=== PATIENT | male | born 1990 | race American Indian/Alaskan Native ===

== ENCOUNTER 2019-09-05 23:25 | Inpatient (IN) | payer OTHER ==
[2019-09-05] MEDS ORDERED: SODIUM CHLORIDE 0.9% 1000 ML 1,000 ML IV ONE (23:30)
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
[2019-09-06 00:09] LABS: Basophils # (Auto) 0.1 K/mm3 (0.0-0.1); Basophils % (Auto) 0.6 % (0.0-1.8); Eosinophils # (Auto) 0.1 K/mm3 (0.0-0.4); Eosinophils % (Auto) 0.6 % (0.0-4.3); Hematocrit 43.5 % (35.5-45.6); Lymphocytes # (Auto) 2.8 K/mm3 (1.2-5.4); Lymphocytes % (Auto) 23.8 % (13.4-35.0); Mean Corpuscular HGB Conc 35 % (32-34); Mean Corpuscular Volume 85 fl (84-94); Monocytes # (Auto) 0.5 K/mm3 (0.0-0.8); Monocytes % (Auto) 4.7 % (0.0-7.3); Platelet Count 264 K/mm3 (140-440); Red Blood Count 5.14 M/mm3 (3.65-5.03); Red Cell Distribution Width 13.2 % (13.2-15.2)
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
[2019-09-06 00:28] LABS: BUN/Creatinine Ratio 14; Blood Urea Nitrogen 17 mg/dL (9-20); Calcium 9.2 mg/dL (8.4-10.2); Hemolysis Index 36
[2019-09-06 00:45] LABS: INR 1.04 (0.87-1.13)
[2019-09-06 00:47] LABS: Partial Thromboplastin Time 22.3 Sec. (24.2-36.6)
[2019-09-06] MEDS ORDERED: fentaNYL 100 MCG/2 ML INJ IV ONE (00:47)
[2019-09-06] MEDS ORDERED: ONDANSETRON 4 MG/2 ML INJ IV ONE (00:47)
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
[2019-09-06] MEDS ORDERED: ONDANSETRON 4 MG/2 ML INJ IV PRN (03:16)
[2019-09-06] MEDS ORDERED: ALBUTEROL 2.5 MG/3 ML NEBU IH PRN (03:16)
[2019-09-06] MEDS: MORPHINE 4 MG/1 ML INJ IV PRN ×4 (03:45→23:09)
[2019-09-06] MEDS: SODIUM CHLORIDE 0.45% 1000 ML 1,000 ML IV SCH ×2 (05:54→14:55)
[2019-09-06] MEDS ORDERED: HYDROmorphone 1 MG/1 ML INJ IV ONE (05:58)
[2019-09-06] MEDS: ACETAMINOPHEN 325 MG TAB PO PRN ×2 (06:14→21:39)
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
[2019-09-06] MEDS: ceFAZolin/NS 1 GM/50 ML 1 GM/50 ML BAG IV SCH (21:40)
[2019-09-07] MEDS: MORPHINE 4 MG/1 ML INJ IV PRN ×6 (03:48→22:56)
[2019-09-07] MEDS: SODIUM CHLORIDE 0.45% 1000 ML 1,000 ML IV SCH ×2 (03:50→05:53)
[2019-09-07] MEDS: ceFAZolin/NS 1 GM/50 ML 1 GM/50 ML BAG IV SCH (05:57)
[2019-09-07 08:46] LABS: Basophils % (Auto) 0.4 % (0.0-1.8); Eosinophils # (Auto) 0.1 K/mm3 (0.0-0.4); Eosinophils % (Auto) 0.6 % (0.0-4.3); Hematocrit 38.1 % (35.5-45.6); Hemoglobin 13.2 gm/dl (11.8-15.2); Lymphocytes # (Auto) 3.3 K/mm3 (1.2-5.4); Lymphocytes % (Auto) 33.4 % (13.4-35.0); Mean Corpuscular HGB Conc 35 % (32-34); Mean Corpuscular Volume 85 fl (84-94); Monocytes % (Auto) 10.4 % (0.0-7.3); Platelet Count 176 K/mm3 (140-440); Red Cell Distribution Width 13.3 % (13.2-15.2)
[2019-09-07 09:02] LABS: BUN/Creatinine Ratio 8; Blood Urea Nitrogen 10 mg/dL (9-20); Calcium 8.5 mg/dL (8.4-10.2); Hemolysis Index 6
[2019-09-07 09:51] LABS: INR 1.33 (0.87-1.13)
[2019-09-07 09:52] LABS: Partial Thromboplastin Time 36.1 Sec. (24.2-36.6)
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
[2019-09-08] MEDS: MORPHINE 4 MG/1 ML INJ IV PRN ×5 (02:37→21:27)
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
[2019-09-08] MEDS: SODIUM CHLORIDE 0.45% 1000 ML 1,000 ML IV SCH (17:27)
[2019-09-09] MEDS: MORPHINE 4 MG/1 ML INJ IV PRN ×5 (01:04→21:16)
[2019-09-09] MEDS: SODIUM CHLORIDE 0.45% 1000 ML 1,000 ML IV SCH (11:35)
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
[2019-09-10] MEDS: SODIUM CHLORIDE 0.45% 1000 ML 1,000 ML IV SCH ×2 (00:50→09:11)
[2019-09-10] MEDS: MORPHINE 4 MG/1 ML INJ IV PRN ×4 (00:54→15:50)
[2019-09-10] MEDS ORDERED: SULFAMETHOXAZOLE/TRIMETHOPRIM 800/160MG DS TAB PO SCH (10:00)
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
[2019-09-10 19:33] VITALS: BP 119/79
== END 2019-09-10 20:01 | disposition home or self-care (01) | DRG 872 ==
LOC: ED 23:25 → 3A 09-06 04:42
PROVIDERS: ADMIT Internal Medicine Geriatric Medicine; ATTEND Internal Medicine
DX: A41.9 Sepsis, unspecified organism (principal); S72.491A Other fracture of lower end of right femur, initial encounter for closed fracture; L03.115 Cellulitis of right lower limb; W34.09XA Accidental discharge from other specified firearms, initial encounter; Y93.89 Activity, other specified; Y92.89 Other specified places as the place of occurrence of the external cause; Y99.8 Other external cause status; Z83.3 Family history of diabetes mellitus
CPT/HCPCS: 36415; 80048; 82140; 82962; 85025; 85610; 85730; 86850; 86900; 86901; 87040; 96361; 96365; 96375; G0378; J0690; J1170; J2270; J2405; J3010; J7030; Q9967

== ENCOUNTER 2020-10-10 19:28 | Emergency (ER) | payer SELFPAY ==
[2020-10-10 20:04] VITALS: BP 147/93
--- NOTE | 2020-10-10 20:33 | Emergency Department Report ---
Chief Complaint: Sore Throat Stated Complaint: SORE THROAT, LEFT EAR PAIN Time Seen by Provider: 10/10/20 20:27 - HPI History of Present Illness: Patient is a 29-year-old male presents emergency room with complaints of a sore throat that began 3 days ago. He states he has some discomfort upon swallowing but is able to tolerate p.o. intake without difficulty. He states he also has left ear pain and a cough. He states he feels like he was getting a cold. He denies any nausea, vomiting, diarrhea, fever, shortness of breath, chest pain, abdominal pain. He denies any past medical history. No allergies to medications. He denies any sick contacts. He denies any recent travel. Vitals are stable Patient is afebrile, no hypoxia, no tachycardia On exam: Non toxic appearing, no acute distress atraumatic, normocephalic normal appearance of the eyes, PERRL, EOMI, no periorbital edema or ecchymosis moist mucus membranes, no tonsillar exudate or hypertrophy, normal posterior oropharynx, uvula is midline, no uvular edema or deviation, no trismus, no tongue elevation, no submandibular swelling, no cervical lymphadenopathy, normal TMs and canals bilaterally regular heart rate and rhythm, no gallops, no rubs, no murmurs breath sounds are clear bilaterally, no w/r/r, no accessory muscle use, no disorder distress, no stridor A&O x4, no focal neuro deficit skin is warm, dry, intact Patient is presenting with symptoms of viral URI He has no clinical signs or symptoms of tonsillitis, pharyngitis, strep throat, peritonsillar abscess He has no clinical signs or symptoms of bacterial pneumonia or bacterial bronchitis Symptoms likely related to a viral syndrome Patient is presenting with the symptoms during COVID-19 pandemic, discussed COVID-19 with patient, discuss strict return precautions, discussed outpatient testing, discussed self quarantine Discussed supportive care and symptomatic treatment with patient Patient given the appropriate resources Discuss strict return precautions Medical screen examination performed there is no threat to life or limb at this time - Exam Vital Signs: Vital Signs 10/10/20 20:01 Temperature 98.9 F Pulse Rate 65 Respiratory 18 Rate Blood Pressure 147/93 O2 Sat by Pulse 98 Oximetry MSE screening note: Focused history and physical exam performed. ED Disposition for MSE Clinical Impression: Viral URI with cough Disposition: [facility]- MED SCREENING EXAM-LEFT Is pt being admited?: No Does the pt Need Aspirin: No Condition: Stable Instructions: Viral Respiratory Infection, [id number] Additional Instructions: Please increase your fluid intake over the next several days. May take Tylenol as needed for fever or body aches. May take [id number] cold symptom relief medication such as Mucinex or TheraFlu. Follow-up with a primary care doctor for reexamination. Return to emergency room immediately for any new or worsening symptoms including but not limited to difficulty breathing, shortness of breath, severe chest pain, unable to tolerate by mouth intake, etc. Please self quarantine for 10 days from the onset of your symptoms. Please do not go out in public. If you are around others at home please wear a mask. If you need to cough or sneeze please do so in a napkin and immediately throw it away and immediately wash your hands. Wash your hands frequently. Wipe everything down. Recommend for you to get COVID-19 testing, may have this done at primary care doctor, health department, [facility] testing center. Referrals: JOSEE DELGADO MD [Staff Physician] - 2-3 Days [facility] [Provider Group] - 2-3 Days [facility], [LAB/CONTRACT] - 2-3 Days Time of Disposition: 20:36 Print Language: IRISH
== END 2020-10-10 20:45 | disposition left against medical advice (07) ==
LOC: ED 19:28
DX: J02.9 Acute pharyngitis, unspecified (principal); Z53.21 Procedure and treatment not carried out due to patient leaving prior to being seen by health care provider